=== PATIENT | female | born 1950 | race Caucasian/White ===

== ENCOUNTER 2022-04-09 02:10 | Day surgery (SDC) | payer MEDICARE, SELFPAY ==
[2022-03-25 14:24] VITALS: BMI 19.5
[2022-04-09 07:02] VITALS: BP 122/65; PULSE 57; RESP 18; TEMP 36.4; O2SAT 100; BMI 20.4
[2022-04-09] MEDS: LACTATED RINGERS 1,000 ML 150 ML IV CONT (07:14)
--- NOTE | 2022-04-09 07:40 | WPDANESEPPF ---
Anes - Initial Pre Proc Eval Procedure: Operation Date: 04/09/22 08:00 Proposed Procedures p Screening Colonoscopy - Roberto Gómez MD Date/Time: 04/09/22 07:40 Surgeon: Roberto Gómez MD Pre Op Diagnosis: neoplasm screening Patient Data Age: 71 Gender: F Height: 1.63 m Weight: 54 kg Last Vital Signs Temp 97.5 F L 04/09/22 07:02 Pulse 57 L 04/09/22 07:02 Resp 18 04/09/22 07:02 BP 122/65 04/09/22 07:02 Pulse Ox 100 04/09/22 07:02 O2 Del Method Room Air 04/09/22 07:02 Allergies Allergy/AdvReac Type Severity Reaction Status Date / Time Penicillins Allergy Unknown Unknown Verified 03/25/22 14:19 Home Medications Medication Instructions Recorded Confirmed Type aspirin 81 mg tablet,delayed 81 mg PO DAILY 09/11/19 03/25/22 History release (Adult Low Dose Aspirin) atorvastatin 20 mg tablet 40 mg PO DAILY 09/11/19 04/09/22 History cetirizine 10 mg capsule (Zyrtec) 1 mg PO DAILY 09/11/19 03/25/22 History diazepam 2 mg tablet 2 mg PO BID PRN Anxiety 09/11/19 04/09/22 History escitalopram oxalate 10 mg tablet 10 mg PO DAILY 09/11/19 03/25/22 History (Lexapro) lactobacillus combination no.9 4 4,000 mmu cells PO DAILY 09/11/19 03/25/22 History billion cell capsule (Adult 50 Plus Probiotic) multivitamin (Daily Multi-Vitamin 1 tablet PO DAILY 09/11/19 03/25/22 History tablet) triamcinolone acetonide 55 mcg 1 spray intranasal DAILY 09/11/19 03/25/22 History nasal spray aerosol (Nasacort) turmeric 400 mg capsule 400 mg PO DAILY 09/11/19 03/25/22 History vitamin B complex (B 1 tablet PO DAILY 09/11/19 03/25/22 History Complex-Vitamin B12 tablet) elderberry fruit 200 mg capsule 200 mg PO DAILY 05/23/20 03/25/22 History cholecalciferol (vitamin D3) 25 25 mcg PO DAILY 09/18/20 03/25/22 History mcg (1,000 unit) capsule ascorbic acid (vitamin C) 500 mg 500 mg PO DAILY 02/02/22 03/25/22 History capsule calcitonin (salmon) 200 1 spray intranasal (ALT) DAILY 02/02/22 03/25/22 Rx unit/actuation nasal spray #11.1 mL zinc acetate 50 mg (zinc) capsule 50 mg PO DAILY 02/02/22 03/25/22 History (Galzin) estradiol 0.025 mg/24 hr weekly 1 patch transdermal WEEKLY #12 ea 02/24/22 03/25/22 Rx transdermal patch sodium sul 1.479 gram-potas ch See Rx Instructions PO PER PKG DIR 03/01/22 03/25/22 Rx 0.188 gram-magnes sul 0.225 gram #24 tabs tablet (Sutab) Patient hx anesthesia problems: none Family hx anesthesia problems: none Results Review: All pre-operative results and documents have been reviewed as part of the pre-operative evaluation. [facility] Past Medical History Medical History Anemia Anxiety High cholesterol History of vaginal delivery x3 Mitral valve disease Osteoporosis Pneumonia Skin cancer Surgical History Surgical History H/O breast augmentation History of appendectomy History of total hysterectomy with removal of both tubes and ovaries [place] teeth removed Family History Family History Sibling Family history of thyroid disease Family history of alcoholism Mother Family history of thyroid disease Hypertension Cerebrovascular accident Family history of Alzheimer's disease Family history of diabetes mellitus in first degree relative Family history of congestive heart failure Diabetes mellitus Patient's mother is in good health Father Hypertension Other Family history of arthritis Family history of heart disease in male family member before age 55 Family history of malignant neoplasm Social History Social History Smoking status: Never smoker Second hand tobacco smoke exposure: No Alcohol intake: never Substance use type: does not use Living arrangements: with family A
--- NOTE | 2022-04-09 07:46 | PM.IMHP ---
H&P: HPI History of Present Illness Date/Time: 04/09/22 07:46 Chief Complaint: Neoplasia screening. Narrative: This is a 71-year-old white female patient presents for screening colonoscopy. Patient reports her current weight appetite bowel movements are normal. She denies abdominal pain. She denies any family history of colon cancer polyps. Most recent colonoscopy was performed by Dr. Rivas in [place] was limited by tortuous colon. Barium enema subsequently was unremarkable. Patient presents today for screening colonoscopy. Review of Systems Review of Systems: Review of systems noncontributory. [facility] Past Medical History Medical History Anemia Anxiety High cholesterol History of vaginal delivery x3 Mitral valve disease Osteoporosis Pneumonia Skin cancer Surgical History Surgical History H/O breast augmentation History of appendectomy History of total hysterectomy with removal of both tubes and ovaries [place] teeth removed Family History Family History Sibling Family history of thyroid disease Family history of alcoholism Mother Family history of thyroid disease Hypertension Cerebrovascular accident Family history of Alzheimer's disease Family history of diabetes mellitus in first degree relative Family history of congestive heart failure Diabetes mellitus Patient's mother is in good health Father Hypertension Other Family history of arthritis Family history of heart disease in male family member before age 55 Family history of malignant neoplasm Social History Social History Smoking status: Never smoker Second hand tobacco smoke exposure: No Alcohol intake: never Substance use type: does not use Living arrangements: with family Meds Home Medications and Allergies Home Medications Medication Instructions Recorded Confirmed Type aspirin 81 mg tablet,delayed 81 mg PO DAILY 09/11/19 03/25/22 History release (Adult Low Dose Aspirin) atorvastatin 20 mg tablet 40 mg PO DAILY 09/11/19 04/09/22 History cetirizine 10 mg capsule (Zyrtec) 1 mg PO DAILY 09/11/19 03/25/22 History diazepam 2 mg tablet 2 mg PO BID PRN Anxiety 09/11/19 04/09/22 History escitalopram oxalate 10 mg tablet 10 mg PO DAILY 09/11/19 03/25/22 History (Lexapro) lactobacillus combination no.9 4 4,000 mmu cells PO DAILY 09/11/19 03/25/22 History billion cell capsule (Adult 50 Plus Probiotic) multivitamin (Daily Multi-Vitamin 1 tablet PO DAILY 09/11/19 03/25/22 History tablet) triamcinolone acetonide 55 mcg 1 spray intranasal DAILY 09/11/19 03/25/22 History nasal spray aerosol (Nasacort) turmeric 400 mg capsule 400 mg PO DAILY 09/11/19 03/25/22 History vitamin B complex (B 1 tablet PO DAILY 09/11/19 03/25/22 History Complex-Vitamin B12 tablet) elderberry fruit 200 mg capsule 200 mg PO DAILY 05/23/20 03/25/22 History cholecalciferol (vitamin D3) 25 25 mcg PO DAILY 09/18/20 03/25/22 History mcg (1,000 unit) capsule ascorbic acid (vitamin C) 500 mg 500 mg PO DAILY 02/02/22 03/25/22 History capsule calcitonin (salmon) 200 1 spray intranasal (ALT) DAILY 02/02/22 03/25/22 Rx unit/actuation nasal spray #11.1 mL zinc acetate 50 mg (zinc) capsule 50 mg PO DAILY 02/02/22 03/25/22 History (Galzin) estradiol 0.025 mg/24 hr weekly 1 patch transdermal WEEKLY #12 ea 02/24/22 03/25/22 Rx transdermal patch sodium sul 1.479 gram-potas ch See Rx Instructions PO PER PKG DIR 03/01/22 03/25/22 Rx 0.188 gram-magnes sul 0.225 gram #24 tabs tablet (Sutab) Allergies Allergy/AdvReac Type Severity Reaction Status Date / Time Penicillins Allergy Unknown Unknown Verified 03/25/22 14:19 Vital Signs Vital Signs - 24 hr 04/09/22 07:02 [place]
[2022-04-09 08:16] VITALS: BP 91/51; PULSE 68; RESP 17; O2SAT 100
[2022-04-09 08:26] VITALS: BP 110/63; PULSE 67; RESP 20; O2SAT 100
[2022-04-09 08:36] VITALS: BP 123/65; PULSE 62; RESP 20; O2SAT 98
== END 2022-04-09 08:47 | disposition home or self-care (01) ==
PROVIDERS: PCP Physician Assistant Medical; Visit Provider Internal Medicine Gastroenterology
PROC: 0DJD8ZZ Inspection of Lower Intestinal Tract, Via Natural or Artificial Opening Endoscopic (ICD-10-PCS; CPT 45378; principal; 2022-04-09 08:00)
DX: Z12.11 Encounter for screening for malignant neoplasm of colon (principal); K64.8 Other hemorrhoids; K57.30 Diverticulosis of large intestine without perforation or abscess without bleeding; K63.89 Other specified diseases of intestine; Z80.0 Family history of malignant neoplasm of digestive organs; F41.9 Anxiety disorder, unspecified; D64.9 Anemia, unspecified; E78.00 Pure hypercholesterolemia, unspecified; M81.0 Age-related osteoporosis without current pathological fracture; Z85.828 Personal history of other malignant neoplasm of skin; Z79.82 Long term (current) use of aspirin
CPT/HCPCS: G0105; J2704; J7120